=== PATIENT | male | born 1965 | race Caucasian/White ===

== ENCOUNTER 2022-07-20 20:00 | Emergency (ER) | payer SELFPAY ==
[~2022-07-20] VITALS: Ht 170.2 cm; Wt 82.0 kg
[2022-07-20] MEDS ORDERED: CYCL5TAB MT (22:05)
[2022-07-20] MEDS ORDERED: CYCLOBENZAPRINE 10MG TABLET PO ONE (22:15)
[2022-07-20] MEDS ORDERED: KETOROLAC 30MG/ML VIAL IM ONE (22:15)
[2022-07-20 22:17] VITALS: BP 148/74
== END 2022-07-20 22:17 | disposition home or self-care (01) ==
LOC: ER 20:00
DX: S13.4XXA Sprain of ligaments of cervical spine, initial encounter (principal); I10 Essential (primary) hypertension; V49.9XXA Car occupant (driver) (passenger) injured in unspecified traffic accident, initial encounter; Y93.89 Activity, other specified; Y92.89 Other specified places as the place of occurrence of the external cause; Y99.8 Other external cause status
CPT/HCPCS: 72125; 96372; 99284; J1885